=== PATIENT | male | born 1985 | race Two or more races ===

== ENCOUNTER 2017-05-21 09:33 | Inpatient (IN) | payer OTHER ==
[~2017-05-21] VITALS: Ht 172.7 cm; Wt 105.2 kg
--- NOTE | 2017-05-21 09:35 | NUR ---
AAOX1, BIBRA 88 C/O POSSIBLE OD TO UNKNOWN SUBSTANCE. SPO2=84% ON RA, PATIENT PLACED ON NR, NOW UMY6=047%. DIAPHORETIC. TACHYCARDIC 128HR. PLACED ON MONITOR. PI=[id number]. 4MG NARCAN GIVEN IN THE FIELD. DR HO AT BS FOR EVAL.
[2017-05-21] MEDS ORDERED: NALOXONE PREFILLED SYRINGE 2 MG/2 ML SYRINGE ONE (09:36)
[2017-05-21] MEDS ORDERED: NALOXONE PREFILLED SYRINGE 2 MG/2 ML SYRINGE IV ONE (10:00)
[2017-05-21] MEDS ORDERED: IV NS 0.9% 1,000 ML BAG IV ONE ×2 (10:00→11:30)
[2017-05-21 10:09] LABS: EOSINOPHILS # (AUTO) 0.1 /CMM (0.0-0.7); HEMOGLOBIN 17.2 g/dL (13.5-17.5); PLATELET COUNT (AUTO) 190 /CMM (150-450)
[2017-05-21 10:23] LABS: CALCIUM, SERUM 8.3 mg/dL (8.5-10.1); CARBON DIOXIDE 27 mmol/L (21-32); CHLORIDE 104 mmol/L (98-107); CREATININE 1.4 mg/dL (0.6-1.3); GLUCOSE 276 mg/dL (74-106); POTASSIUM 4.3 mmol/L (3.5-5.1); SODIUM SERUM 138 mmol/L (136-145); UREA NITROGEN, BLOOD 11 mg/dL (7-18)
[2017-05-21 10:26] LABS: BASOPHILS # (AUTO) 0.3 /CMM (0.0-0.2); BASOPHILS % (AUTO) 2.9 % (0.0-2.0); HEMATOCRIT 50 % (39-51); LYMPHOCYTES % (AUTO) 22.5 % (20.0-44.0); MEAN CORPUSCULAR HEMOGLOBIN 29 PG (26.0-33.0); MEAN CORPUSCULAR HGB CONC 35 g/dl (31.0-36.0); MEAN CORPUSCULAR VOLUME 85 fL (80-96); MONOCYTES # (AUTO) 0.1 /CMM (0.1-1.30); MONOCYTES % (AUTO) 1.6 % (2.0-12.0); NEUTROPHILS # (AUTO) 6.5 /CMM (1.8-8.9); RDW COEFFICIENT OF VARIATION 12.3 (11.5-15.0); RED BLOOD CELL COUNT(AUTO) 5.84 MIL/uL (4.5-6.0)
[2017-05-21 10:38] LABS: ALANINE AMINOTRANSFERASE 37 U/L (12-78); ALBUMIN 3.2 g/dL (3.4-5.0); ALKALINE PHOSPHATASE 82 U/L (46-116); ASPARTATE AMINOTRANSFERASE 29 U/L (15-37); BILIRUBIN,DIRECT 0.1 mg/dL (0.0-0.2); BILIRUBIN,TOTAL 0.6 mg/dL (0.2-1.0); TOTAL PROTEIN, SERUM 6.8 g/dL (6.4-8.2)
[2017-05-21 10:39] LABS: SALICYLATE 0.5 mg/dL (2.8-20.0)
[2017-05-21 10:40] LABS: ACETAMINOPHEN < 2 ug/ml (10-30); ALCOHOL, BLOOD < 3 mg/dL (0-0)
[2017-05-21 10:53] LABS: APPEARANCE,URINE Cloudy (CLEAR); BILIRUBIN,URINE Negative (NEGATIVE); BLOOD, URINE Trace-lysed Ery/uL (NEGATIVE); COLOR,URINE Yellow (YELLOW); KETONES,URINE Negative (NEGATIVE); LEUKOCYTE ESTERASE ,URINE Negative (NEGATIVE); NITRITE, URINE Negative (NEGATIVE); PH,URINE 6.5 (5.0-8.0); PROTEIN,URINE 100 mg/dl (NEGATIVE); UGLUCOSE 100 MG/DL mg/dL (NEGATIVE)
[2017-05-21 11:27] LABS: BACTERIA,URINE Rare /HPF (None Seen); SPERM,URINE Moderate /HPF (None Seen); SQUAMOUS EPITHELIAL CELL,UR Few /HPF (None Seen); WBC,URINE 0-2 /HPF (0-3)
[2017-05-21] MEDS ORDERED: PIPERACILLIN /TAZOBACTAM 3.375 G in IV D5W 50 ML IV ONE (11:30)
--- NOTE | 2017-05-21 11:30 | NUR ---
Patient is resting comfortably in bed with eyes closed. Easily aroused. VSS
--- NOTE | 2017-05-21 12:58 | NUR ---
PATIENT PLACED ON SIMPLE FACE MASK AT 6L/MIN INSTEAD OF NR.
--- NOTE | 2017-05-21 13:09 | NUR ---
PATIENT UNABLE TO TOLERATE FACE MASK, ER MD MADE AWARE. DR HO ORDERED TO PUT IT BACK TO NR @ 10L/MIN.
--- NOTE | 2017-05-21 13:13 | NUR ---
Patient is resting comfortably in bed with eyes closed. Easily aroused. VSS
[2017-05-21] MEDS ORDERED: ACETAMINOPHEN 325 MG TABLET PO PRN (13:30)
[2017-05-21] MEDS ORDERED: ZOLPIDEM TARTRATE 5 MG TABLET PO PRN (13:30)
[2017-05-21] MEDS ORDERED: ONDANSETRON HCL/PF 4 MG/2 ML VIAL IVP PRN (13:30)
[2017-05-21] MEDS ORDERED: HYDROCODONE/APAP 5/325MG 1 EACH TABLET PO PRN (13:30)
[2017-05-21] MEDS ORDERED: Z GUARD REMEDY 2 OZ OINT TP PRN (13:30)
[2017-05-21] MEDS ORDERED: MAG HYDROX/AL HYDROX/SIMETH 30 ML UDC PO PRN (13:30)
[2017-05-21] MEDS ORDERED: MAGNESIUM HYDROXIDE 30 ML UDC PO PRN (13:30)
--- NOTE | 2017-05-21 13:56 | NUR ---
REPORT GIVEN TO ESTRADA MENDEZ FOR [facility] ILEANA 119-1
--- NOTE | 2017-05-21 13:56 | NUR ---
TD/RN REPORT FROM ER RECEIVED A REPORT FROM ER NURSE ETCEL FOR PT TO BE ADMITTED FOR OVERDOSE UNDER THE CARE OF DR. PINTO. AWAITING FOR PT'S ARRIVAL.
[2017-05-21 14:30] VITALS: BP 112/68
--- NOTE | 2017-05-21 14:30 | NUR ---
TD/OYSTER TONGER TO ILEANA - ROOM 119#1 PT ARRIVED VIA GURNEY FROM ER ACCOMPANIED BY ER NURSE ETCEL AND ER PRODUCTION SUPPORT DEVELOPER. PT IS LETHARGIC BUT AROUSEABLE BUT UNABLE TO MAKE A SENSIBLE CONVERSATION OR HISTORY. PT PLACED ON NON-BREATHER MASK, SATURATING @ 94%, LUNG SOUNDS CLEAR. ON TELE WITH SINUS TACHY, HR 102. IV SITE FLUSHED PATENT WITH NO S/S OF INFECTION, SL. PT IS RESTING. AWAITING FOR ADMITTING ORDERS. CL WITHIN REACHED AND SAFETY MAINTAINED.
[2017-05-21] MEDS ORDERED: FEE PK DOSING 1 MIN EA MC ONE (14:32)
[2017-05-21] MEDS: IV NS 0.9% 1,000 ML IV PRN (14:56)
[2017-05-21 16:00] VITALS: BP 128/68
[2017-05-21] MEDS: VANCOMYCIN 1.25 GM in IV D5W 500 ML IV SCH (16:36)
[2017-05-21] MEDS: PIPERACILLIN /TAZOBACTAM 3.375 G in IV D5W 50 ML IV SCH ×2 (18:11→23:42)
--- NOTE | 2017-05-21 19:26 | NUR ---
TD/RN AM SHIFT END NOTES PT STILL LETHARGIC, BUT RESPONSIVE, CONFUSED, ON NON-BREATHER MASK. ALL NEEDS MET. NO OTHER ACUTE CHANGE OF CONDITION NOTED SINCE PT WAS ADMITTED. ENDORSED TO PM NURSE TO CONTINUE CARE. CL WITHIN REACHED AND SAFETY MAINTAINED.
[2017-05-21 20:00] VITALS: BP 114/78
[2017-05-22] VITALS (7 sets, daily range): BP systolic 101–163; BP diastolic 56–83
[2017-05-22] MEDS: VANCOMYCIN 1.25 GM in IV D5W 500 ML IV SCH ×3 (03:35→19:38)
[2017-05-22] MEDS: IV NS 0.9% 1,000 ML IV PRN (03:36)
[2017-05-22] MEDS: PIPERACILLIN /TAZOBACTAM 3.375 G in IV D5W 50 ML IV SCH ×4 (06:27→23:28)
--- NOTE | 2017-05-22 07:30 | NUR ---
RN NOTES RECEIVED PATIENT IN BED ASLEEP WITH BREATHING NORMAL, EVEN AND UNLABORED. NO SOB NOTED. NO ACUTE DISTRESS NOTED. ON 12L O2 VIA NON REBREATHER MASK. SATURATING WELL. TELE MONITOR REVEALS ST, RS=481. IV IS PATENT AND INTACT, RUNNING IVF PER ORDER. KEPT CLEAN, DRY AND COMFORTABLE. ALL NEEDS ATTENDED. CALL LIGHT WITH IN REACH. SAFETY MEASURE OBSERVED. WILL CONT TO MONITOR.
[2017-05-22 07:57] LABS: BASOPHILS % (AUTO) 0.1 % (0.0-2.0); EOSINOPHILS % (AUTO) 0.1 % (0.0-6.0); HEMATOCRIT 47 % (39-51); HEMOGLOBIN 15.8 g/dL (13.5-17.5); LYMPHOCYTES # (AUTO) 1.3 /CMM (0.8-4.8); LYMPHOCYTES % (AUTO) 7.4 % (20.0-44.0); MEAN CORPUSCULAR HEMOGLOBIN 30 PG (26.0-33.0); MEAN CORPUSCULAR HGB CONC 34 g/dl (31.0-36.0); MEAN CORPUSCULAR VOLUME 88 fL (80-96); MONOCYTES # (AUTO) 0.4 /CMM (0.1-1.30); MONOCYTES % (AUTO) 2.3 % (2.0-12.0); NEUTROPHILS % (AUTO) 90.1 % (43.0-81.0); PLATELET COUNT (AUTO) 153 /CMM (150-450); RDW COEFFICIENT OF VARIATION 13.2 (11.5-15.0); RED BLOOD CELL COUNT(AUTO) 5.37 MIL/uL (4.5-6.0); WHITE BLOOD COUNT (AUTO) 17.7 K/uL (4.3-11.0)
[2017-05-22 08:20] LABS: CALCIUM, SERUM 8.3 mg/dL (8.5-10.1); MAGNESIUM 1.9 mg/dL (1.8-2.4); PHOSPHORUS 2.7 mg/dL (2.5-4.9); POTASSIUM 4.5 mmol/L (3.5-5.1)
[2017-05-22 10:39] LABS: BAND % (MANUAL) 9 % (0.0-5.0); LYMPHOCYTES % (MANUAL) 8 % (16-48); MONOCYTES % (MANUAL) 4 % (0-11.0); NEUTROPHILS % (MANUAL) 79 (42-76)
--- NOTE | 2017-05-22 14:50 | NUR ---
Social service consult requested by ILEANA Roy for drug overdose. Pt. is a 31 year old male who was admitted to [facility] for drug overdose, respiratory failure and pneumonia. Pt. is alert and oriented x 2. Pt. appears lethargic and groggy. Pt. states he is homeless and has been homeless for a while. Pt. uses methamphetamines daily. Pt. has been in treatment before in [place]. Pt. is currently not interested in going back to a drug treatment program. Pt. [facility]. SW to follow up with pt. prior to discharge to offer him homeless resources and [facility] placement.
--- NOTE | 2017-05-22 19:26 | NUR ---
RN NOTES PATIENT ENDORSED TO NEXT SHIFT IN STABLE CONDITION FOR CONTINUITY OF CARE. NO SIGNIFICANT CHANGES NOTED. KEPT CLEAN, DRY AND COMFORTABLE. ALL NEEDS ATTENDED. SAFETY MEASURE OBSERVED. CALL LIGHT WITH IN REACH. WILL CONT TO MONITOR.
[2017-05-23] VITALS: BP 130/71
[2017-05-23] MEDS: VANCOMYCIN 1.25 GM in IV D5W 500 ML IV SCH ×3 (03:29→18:23)
[2017-05-23 04:00] VITALS: BP 142/89
[2017-05-23] MEDS: IV NS 0.9% 1,000 ML IV PRN ×2 (05:30→23:37)
[2017-05-23] MEDS: PIPERACILLIN /TAZOBACTAM 3.375 G in IV D5W 50 ML IV SCH ×4 (05:30→23:37)
--- NOTE | 2017-05-23 07:15 | NUR ---
RN INITIAL NOTES: REC'D PT ASLEEP ON BED, A/O X 3, DROWSY/LETHARGIC. ON FACE MASK AT 5LPM, NO SOB, BUT PT KEEP ON REMOVING IT. PLACED ON NC AT 4LPM, SATING AT 98%. ON TELEMONITOR, HAS 2 IV LINE ACCESS, BOTH PATENT & INTACT W/ NO S/SX OF INFECTION/INFILTRATION NOTED: L AC G18, SL AND L HAND G22 PL W/ NS X 100 CC/HR INFUSING WELL. PROVIDED COMFORT & SAFETY MEASURES. BED KEPT LOW & IN LOCKED POS. CALL LIGHT PLACED W/IN REACH. WILL CONTINUE TO MONITOR AND ATTEND PT NEEDS.
[2017-05-23 07:24] LABS: BASOPHILS % (AUTO) 0.2 % (0.0-2.0); EOSINOPHILS # (AUTO) 0.1 /CMM (0.0-0.7); HEMATOCRIT 43 % (39-51); HEMOGLOBIN 14.5 g/dL (13.5-17.5); LYMPHOCYTES # (AUTO) 1.2 /CMM (0.8-4.8); LYMPHOCYTES % (AUTO) 10.2 % (20.0-44.0); MEAN CORPUSCULAR HEMOGLOBIN 29 PG (26.0-33.0); MEAN CORPUSCULAR HGB CONC 33 g/dl (31.0-36.0); MEAN CORPUSCULAR VOLUME 88 fL (80-96); MONOCYTES # (AUTO) 0.5 /CMM (0.1-1.30); MONOCYTES % (AUTO) 4.8 % (2.0-12.0); NEUTROPHILS # (AUTO) 9.5 /CMM (1.8-8.9); NEUTROPHILS % (AUTO) 83.8 % (43.0-81.0); PLATELET COUNT (AUTO) 144 /CMM (150-450); RDW COEFFICIENT OF VARIATION 12.9 (11.5-15.0); RED BLOOD CELL COUNT(AUTO) 4.95 MIL/uL (4.5-6.0); WHITE BLOOD COUNT (AUTO) 11.4 K/uL (4.3-11.0)
[2017-05-23 07:43] LABS: CALCIUM, SERUM 8.4 mg/dL (8.5-10.1); CREATININE 0.8 mg/dL (0.6-1.3); POTASSIUM 4.3 mmol/L (3.5-5.1)
[2017-05-23 08:00] VITALS: BP 136/89
[2017-05-23 12:00] VITALS: BP 125/71
--- NOTE | 2017-05-23 15:11 | NUR ---
RN NOTES: MD UPDATED ABOUT PT CONDITION. PER DR. CASTELLANOS MAY START PT ON REGULAR DIET.
[2017-05-23 16:00] VITALS: BP 124/72
--- NOTE | 2017-05-23 19:02 | NUR ---
RN CLOSING NOTES: NO ACUTE CHANGES NOTED W/IN SHIFT. PT TOLERATED NC AT 4LPM, NO SOB. ON TELEMONITOR, SR/ST. 2 IV LINE ACCESS, BOTH KEPT PATENT & INTACT W/ NO S/SX OF INFECTION/INFILTRATION NOTED: L AC G18, SL AND L HAND G22 PL W/ NS X 100 CC/HR INFUSING WELL. PT TOLERATED REGULAR DIET W/ NO ASPIRATION NOTED. KEPT WELL RESTED. NEEDS ATTENDED. BED KEPT LOW & IN LOCKED POS. CALL LIGHT PLACED W/IN REACH. WILL ENDORSE TO PM RN FOR GAYATRI.
--- NOTE | 2017-05-23 19:30 | NUR ---
LASER TECHNICIAN INITIAL NOTE PT RECEIVED SLEEPING IN BED. A/O X 2 NOTED TO BE LETHARGIC, DROWSY BUT EASILY AROUSABLE TO NAME. ON 4L OF O2 AND SATURATING 98%. BREATHING EVEN, REGULAR AND UNLABORED. TELE- SINUS RHYTHM-TACHY. IV L HAND CLEAN, PATENT WITH FLUIDS INFUSING. IV LAC CLEAN, DRY AND FLUSHING WELL. CALL LIGHT WITHIN REACH. WILL CONTINUE TO MONITOR.
[2017-05-23 20:00] VITALS: BP 138/76
[2017-05-24] VITALS (7 sets, daily range): BP systolic 106–139; BP diastolic 60–87
[2017-05-24] MEDS: VANCOMYCIN 1.25 GM in IV D5W 500 ML IV SCH ×3 (02:38→18:03)
[2017-05-24] MEDS: PIPERACILLIN /TAZOBACTAM 3.375 G in IV D5W 50 ML IV SCH ×3 (05:28→17:27)
[2017-05-24 07:03] LABS: CALCIUM, SERUM 8.4 mg/dL (8.5-10.1); CREATININE 0.8 mg/dL (0.6-1.3); POTASSIUM 3.5 mmol/L (3.5-5.1)
--- NOTE | 2017-05-24 07:46 | NUR ---
MANAGER BACKGROUND CLOSING NOTE PT REMAINED STABLE DURING SHIFT. NO ACUTE DISTRESS NOTED. STILL NOTED LETHARGIC BUT EASILY AROUSABLE BY NAME AND LIGHT TOUCH. HOB ELEVATED. ALL NEEDS ATTENDED TO PROMPTLY. CALL LIGHT WITHIN REACH. WILL ENDORSE TO NEXT SHIFT FOR CONTINUITY OF CARE.
--- NOTE | 2017-05-24 08:32 | NUR ---
REVEIVED PT. ASLEEP BUT AROUSABLE,NO ACUTE DISTRESS.
[2017-05-24] MEDS: IV NS 0.9% 1,000 ML IV PRN (17:35)
--- NOTE | 2017-05-24 17:59 | NUR ---
PATIENT REFUSED MORNING CARE,OFFERED BEDBATH STILL REFUSED VERBALIZED JUST WANT TO SLEEP.
--- NOTE | 2017-05-24 18:29 | NUR ---
FF. UP VANCO THROUGH LEVEL STILLL PENDING.
--- NOTE | 2017-05-24 20:00 | NUR ---
MS RN NOTES RECEIVED PTS ON BED AWAKE AND RESPONSIVE, NO SOB NO DISTRESS NO C/O OF PAIN NOTED , ALL DUE MEDS GIVEN ORDERED , ALL NEEDS ATTENDED TOO , CALL LIGHT WITHIN REACH , PTS ON L HAND G#22 IVF OF NS AT 100 CC/HR IN PROGRESS , WILL CONTINUE TO MONITOR PTS.V/S STABLE AFEBRILE
[2017-05-25] MEDS: PIPERACILLIN /TAZOBACTAM 3.375 G in IV D5W 50 ML IV SCH ×3 (00:19→12:34)
[2017-05-25] MEDS: VANCOMYCIN 1.25 GM in IV D5W 500 ML IV SCH ×2 (02:01→10:34)
[2017-05-25 04:00] VITALS: BP 102/61
--- NOTE | 2017-05-25 05:40 | NUR ---
ms rn notes pts on bed awake and responsive , v/s stable afebrile , all iv atb given as ordered. no sob no distress noted, remains on ivf of ns at 100cc/hr well tolerated , will endorse to rn day shift for continuity of care.
--- NOTE | 2017-05-25 07:50 | NUR ---
MS RN OPENING NOTE PATIENT IS ALERT AND ORIENTED x3. NO PAIN AT THIS TIME. NO SOB OR DISTRESS NOTED. CALL LIGHT WITHIN REACH. SAFETY MEASURES IMPLEMENTED. ABLE TO COMMUNICATE NEEDS. IV INTACT AND PATENT NO REDNESS OR SWELLING NOTED. IV FLUIDS RUNNING AT THIS TIME 100 ML/HR TOLERATING WELL. LABS THIS MORNING AWAITING RESULTS. WILL CONTINUE TO MONITOR THROUGHOUT SHIFT
[2017-05-25 08:02] LABS: CALCIUM, SERUM 8.6 mg/dL (8.5-10.1); CREATININE 0.8 mg/dL (0.6-1.3); POTASSIUM 3.7 mmol/L (3.5-5.1)
[2017-05-25] MEDS: IV NS 0.9% 1,000 ML IV PRN (10:34)
[2017-05-25 12:00] VITALS: BP 126/85
[2017-05-25] MEDS ORDERED: AMOX-430 PO (13:11)
--- NOTE | 2017-05-25 14:54 | NUR ---
SW and case therapist met with pt. bedside to discuss discharge plan. Pt. states he resides at at apartment complex located [address] [place]. Pt. to be transported via taxi to [facility] [address], in [facility] Pt. declined drug treatment program referrals. No other social service needs are required at this time. SW is available if needed. ESTRADA Bejarano was informed regarding discharge plan.
--- NOTE | 2017-05-25 16:01 | NUR ---
MS DRY DIP WORKER NOTE PATIENT IS ALERT AND ORIENTED X4. NO PAIN AT THIS TIME. NO SOB OR DISTRESS NOTED. CALL LIGHT WITHIN REACH AT ALL TIMES. SAFETY MEASURES IMPLEMENTED. ABLE TO COMMUNICATE NEEDS. IV REMOVED SKIN INTACT. ALL BELONGINGS WITH PATIENT UPON DISCHARGE. ALL NURSING CARE INSTRUCTIONS GIVEN TO PATIENT, TEACH BACK RECEIVED. PRESCRIPTION GIVEN TO PATIENT, MEDICATION EDUCATION GIVEN TO PATIENT, TEACH BACK RECEIVED. ALL DUE MEDICATIONS GIVEN ORDERED. LEFT VIA TAXI HOME.
[2017-05-25] MEDS ORDERED: LACTOBACILLUS RHAMNOSUS GG 1 EACH CAP.SPRINK PO SCH (17:00)
== END 2017-05-25 15:42 | disposition home or self-care (01) | DRG 812 ==
LOC: ER 09:35 → EDBD 09:35 → TELE-TD 14:04 → TELE1 05-23 13:58 → MEDSG1 05-24 11:39
PROVIDERS: ADMIT Family Medicine; ATTEND Family Medicine
DX: T40.601A Poisoning by unspecified narcotics, accidental (unintentional), initial encounter (principal); N17.0 Acute kidney failure with tubular necrosis; J96.01 Acute respiratory failure with hypoxia; E44.1 Mild protein-calorie malnutrition; J69.0 Pneumonitis due to inhalation of food and vomit; E87.2 Acidosis; T43.621A Poisoning by amphetamines, accidental (unintentional), initial encounter; Y92.009 Unspecified place in unspecified non-institutional (private) residence as the place of occurrence of the external cause; J15.6 Pneumonia due to other Gram-negative bacteria; E88.09 Other disorders of plasma-protein metabolism, not elsewhere classified; J15.9 Unspecified bacterial pneumonia; Z68.35 Body mass index [BMI] 35.0-35.9, adult; D72.829 Elevated white blood cell count, unspecified
CPT/HCPCS: 36415; 71045-TC; 80048-TC; 80061-TC; 80076-TC; 80202-TC; 80305; 81000-TC; 82962-TC; 83605-TC; 83735-TC; 84100-TC; 84484-TC; 85025-TC; 87040-TC; 87081-TC; 87086-TC; A4606; G0480; J2310; J2543; J3370; J7030; J7040; J7060; Z7610